=== PATIENT | female | born 1970 | race Caucasian/White ===

== ENCOUNTER → 2016-10-29 | Outpatient (CLI) | payer BC ==
--- NOTE | 2016-10-29 16:57 | MAMMOGRAPHY REPORT ---
BILATERAL FIRST EVER DIGITAL SCREENING MAMMOGRAM TOMOSYNTHESIS WITH CAD: 10/29/2016 CLINICAL HISTORY: Baseline examination. TECHNIQUE: Breast tomosynthesis in addition to standard 2D mammography was performed. Current study was also evaluated with a Computer Aided Detection (CAD) system. COMPARISON: No prior exams were available for comparison. BREAST COMPOSITION: The tissue of both breasts is heterogeneously dense, which may obscure small ma sses. FINDINGS: There is a possible obscured 2 cm mass in the left 12:00 breast, for which ultrasound and possible additional views are recommended for further evaluation. Additionally, there is a 14 mm a symmetry seen within the left breast along the posterior nipple line on the MLO view middle depth, w hich may represent normal fibroglandular tissue although spot compression tomosynthesis views and po ssible breast ultrasound are recommended for further evaluation. Additionally, there is a small clu ster of calcifications seen within the left inferior breast on the MLO view, possibly projecting med ially on the cc view, for which spot magnification views are recommended. The remainder of both breasts demonstrate no suspicious masses, calcifications, or areas of architec tural distortion. IMPRESSION: ACR BI-RADS CATEGORY 0: INCOMPLETE EVALUATION: NEED ADDITIONAL IMAGING EVALUATION Possible left breast mass, left breast asymmetry, and left breast calcifications, for which addition al imaging evaluation is recommended. The patient will be called to schedule an appointment. Approximately 10% of breast cancers are not detected with mammography. A negative mammographic repor t should not delay biopsy if a clinically suggestive mass is present. Jennifer Pelaez M.D. ah/:10/29/2016 16:22:56 Insurance Collector: Rosalina HERRERA)([place]e), [facility] letter sent: Addl Imaging 0 BI-RADS Code: ACR BI-RADS Category 0: Incomplete Evaluation: Need Additional Imaging Evaluation
== END ==
LOC: C.MAMM 11:34
PROVIDERS: ATTEND Nurse Practitioner Family
DX: Z12.31 Encounter for screening mammogram for malignant neoplasm of breast (principal)

== ENCOUNTER → 2016-10-31 | Outpatient (CLI) | payer BC ==
--- NOTE | 2016-10-31 15:19 | MAMMOGRAPHY REPORT ---
UNILATERAL LEFT DIGITAL DIAGNOSTIC MAMMOGRAM TOMOSYNTHESIS AND TARGETED LEFT ULTRASOUND: 10/31/2016 CLINICAL HISTORY: Callback from screening mammogram for left breast asymmetries/mass and calcificati ons. TECHNIQUE: Breast tomosynthesis in addition to standard 2D mammography was performed. Spot se julio cesar left CC and MLO tomosynthesis images including C views and spot magnification left CC and ML vi ews were obtained. COMPARISON: Comparison is made to exam dated: 10/29/2016 mammogram - [facility]. BREAST COMPOSITION: The tissue of the left breast is heterogeneously dense, which may obscure small masses. FINDINGS: Spot compression views demonstrate an ovoid 15 mm asymmetry seen within the left 12:00 re gion, best seen on the cc tomosynthesis images. The other previously described asymmetry seen poste rior to the left nipple on the MLO view is less prominent on the additional views, without a discret e mass noted on the additional views in this region. Spot magnification views of the left breast de monstrate a small 3 mm cluster of calcifications in the left 9:00 breast. The calcifications are sm udgy and amorphous on the cc view, and on the lateral view demonstrate layering within a round circu mscribed 4 mm mass, consistent with calcifications layering within a cyst. Targeted ultrasound was performed of the areas of the left breast asymmetries. Numerous round/oval anechoic cysts were noted within the left breast on ultrasound. In the left breast at 2:00, 3 cm fro m the nipple, there is an oval hypoechoic circumscribed mass which measures 7 x 3 x 7 mm. Another s imilar appearing hypoechoic mass is seen within the left 12:00 periareolar region measuring 5 mm. A nother hypoechoic circumscribed benign-appearing 4 x 6 mm mass is seen within the left breast at 11: 00, 3 cm from the nipple. These hypoechoic masses are circumscribed and likely represent complicate d cysts, given the presence of multiple other cysts within the left breast; the other consideration includes benign solid masses such as fibroadenomas. Given the presence of multiple circumscribed ma sses, the findings are benign. In the left breast at 9:00, 5 cm from the nipple, there is an oval a nechoic circumscribed 4 x 2 x 3 mm mass, which contains multiple thin internal septations and is con sistent with a benign cyst cluster. A few punctate echogenic foci are seen within the mass, which c ould account for the calcifications seen mammographically. No suspicious masses were noted on ultra sound. IMPRESSION: ACR BI-RADS CATEGORY 2: BENIGN, TARGETED ULTRASOUND ACR BI-RADS CATEGORY 2: BENIGN Multiple circumscribed anechoic and hypoechoic masses seen within the left breast on ultrasound, whi ch are benign and likely represent simple and complicated cysts. Small cluster of calcifications in the left 9:00 breast demonstrate layering within a circumscribed mass, and are therefore benign and consistent with calcifications layering within a cyst. There is no mammographic or targeted sonogr aphic evidence of malignancy. A 1 year screening mammogram is recommended. The patient has been verbally notified of the results. Approximately 10% of breast cancers are not detected with mammography. A negative mammographic repor t should not delay biopsy if a clinically suggestive mass is present. Jennifer Pelaez M.D. ah/:10/31/2016 14:45:25 Pick Up Man: Lisa Soria, [facility] letter sent: Normal 1/2 BI-RADS Code: ACR BI-RADS Category 2: Benign Ultrasound BI-RADS: ACR BI-RADS Category 2: Benign
== END | disposition home or self-care (01) ==
LOC: C.MAMM 13:04
PROVIDERS: ATTEND Nurse Practitioner Family
DX: N63 Unspecified lump in breast (principal); N64.89 Other specified disorders of breast; R92.1 Mammographic calcification found on diagnostic imaging of breast

== ENCOUNTER → 2017-02-06 | Outpatient (CLI) | payer OTHER, BC ==
--- NOTE | 2017-02-06 13:51 | DIAGNOSTIC IMAGING REPORT ---
LEFT FOREARM 2 VIEWS ROUTINE CLINICAL HISTORY: LEFT FOREARM trauma COMPARISON: None. DISCUSSION: The bones and joint spaces appear intact. There is no evidence of fracture, dislocation or bony disease. Small old avulsion from the ulnar styloid. IMPRESSION: No acute process. Mild soft tissue edema The above report was generated using voice recognition software. It may contain grammatical, syntax or spelling errors. Electronically signed by: Valeriy Medrano M.D. 02/06/2017 1:49 PM Dictated Date/Time: 02/06/2017 1:49 PM
== END | disposition home or self-care (01) ==
LOC: C.RAD1850 13:36
PROVIDERS: ATTEND Physician Assistant
DX: S50.12XA Contusion of left forearm, initial encounter (principal); X58.XXXA Exposure to other specified factors, initial encounter